=== PATIENT | male | born 1970 | race American Indian/Alaskan Native ===

== ENCOUNTER 2016-06-22 09:19 | Emergency (ER) | payer SELFPAY ==
[2016-06-22 09:45] VITALS: BP 123/96
--- NOTE | 2016-06-22 10:29 | Emergency Department Report ---
ED ENT HPI - General Chief complaint: Sore Throat Stated complaint: SEVERE THROAT /EAR PAIN Time Seen by Provider: 06/22/16 10:26 Source: patient Mode of arrival: Ambulatory Limitations: No Limitations - History of Present Illness Initial comments: Patient complaining of severe sore throat for the past 2 weeks. Patient denies shortness of breath, nausea vomiting, inability to eat or swallow. He should also denies neck pain. MD complaint: sore throat -: Gradual Location: throat Severity: mild Quality: burning - Related Data Previous Rx's Medication Instructions Recorded Last Taken Type Amoxicillin/K Clav Tab [Augmentin 1 tab PO Q12HR #20 tab 06/22/16 Unknown Rx 875 mg] predniSONE [Deltasone] 50 mg PO QDAY #5 tab 06/22/16 Unknown Rx Allergies Allergy/AdvReac Type Severity Reaction Status Date / Time No Known Allergies Allergy Unverified 06/22/16 09:41 ED Dental HPI - General Chief complaint: Sore Throat Stated complaint: SEVERE THROAT /EAR PAIN Time Seen by Provider: 06/22/16 10:26 Source: patient Mode of arrival: Ambulatory Limitations: No Limitations - History of Present Illness MD complaint: sore throat -: Gradual Severity: mild Quality: burning Worsens with: swallowing - Related Data Previous Rx's Medication Instructions Recorded Last Taken Type Amoxicillin/K Clav Tab [Augmentin 1 tab PO Q12HR #20 tab 06/22/16 Unknown Rx 875 mg] predniSONE [Deltasone] 50 mg PO QDAY #5 tab 06/22/16 Unknown Rx Allergies Allergy/AdvReac Type Severity Reaction Status Date / Time No Known Allergies Allergy Unverified 06/22/16 09:41 ED Review of Systems ROS: Stated complaint: SEVERE THROAT /EAR PAIN Other details as noted in HPI Constitutional: denies: chills, fever Eyes: denies: eye pain, eye discharge, vision change ENT: throat pain. denies: ear pain Respiratory: denies: cough, shortness of breath, wheezing Cardiovascular: denies: chest pain, palpitations Endocrine: no symptoms reported Gastrointestinal: denies: abdominal pain, nausea, diarrhea Genitourinary: denies: urgency, dysuria Musculoskeletal: denies: back pain, joint swelling, arthralgia Skin: denies: rash, lesions Neurological: denies: headache, weakness, paresthesias Psychiatric: denies: anxiety, depression Hematological/Lymphatic: denies: easy bleeding, easy bruising ED Past Medical Hx - Past Medical History Previous Medical History?: No - Surgical History Past Surgical History?: No - Social History Smoking Status: Never Smoker Substance Use Type: Alcohol, Non Opiate Pain - Medications Home Medications: Home Medications Medication Instructions Recorded Confirmed Last Taken Type Amoxicillin/K Clav Tab [Augmentin 1 tab PO Q12HR #20 tab 06/22/16 Unknown Rx 875 mg] predniSONE [Deltasone] 50 mg PO QDAY #5 tab 06/22/16 Unknown Rx ED Physical Exam - General Limitations: No Limitations General appearance: alert, in no apparent distress - Head Head exam: Present: atraumatic, normocephalic - Eye Eye exam: Present: normal appearance - ENT ENT exam: Present: mucous membranes dry, mucous membranes moist - Expanded ENT Exam Expanded Mouth exam: Absent: trismus, tongue elevation Throat exam: Positive: tonsillar erythema, other (no uvular deviation. Extremely swollen bilateral tonsils are almost touching.). Negative: tonsillar exudate, R peritonsillar mass, L peritonsillar mass - Neck Neck exam: Present: normal inspection, lymphadenopathy (mild anterior tender cervical adenopathy). Absent: tenderness, meningismus - Respiratory Respiratory exam: Present: normal lung sounds bilaterally. Absent: respiratory distress - Cardiovascular Cardiovascular Exam: Present: regular rate, normal rhythm. Absent: systolic murmur, diastolic murmur, rubs, gallop - GI/Abdominal GI/Abdominal exam: Present: soft, normal bowel sounds - Rectal Rectal exam: Present: deferred - Extremities Exam Extremities exam: Present: normal inspection - Back Exam Back exam: Present: normal inspection - Neurological Exam Neurological exam: Present: alert, oriented X3 - Psychiatric Psychiatric exam: Present: normal affect, normal mood - Skin Skin exam: Present: warm, dry, intact, normal color. Absent: rash ED Course Vital Signs 06/22/16 09:41 Temperature 98.4 F Pulse Rate 67 Respiratory 18 Rate Blood Pressure 123/96 O2 Sat by Pulse 99 Oximetry Critical care attestation.: If time is entered above; I have spent that time in minutes in the direct care of this critically ill patient, excluding procedure time. ED Disposition Clinical Impression: Tonsillitis Disposition: DISCHARGED TO HOME OR SELFCARE Is pt being admited?: No Does the pt Need Aspirin: No Condition: Good Instructions: Tonsillitis (ED) Additional Instructions: Patient advised to return to ER for inability to swallow fluids, shortness of breath, or neck pain. He should also advised to return in 48 hours so I could recheck his throat explaining the concern for developing possible peritonsillar abscess. Prescriptions: Amoxicillin/K Clav Tab [Augmentin 875 mg] 1 tab PO Q12HR #20 tab predniSONE [Deltasone] 50 mg PO QDAY #5 tab Forms: Work/School Release Form(ED)
[2016-06-22] MEDS ORDERED: XYLOCAINE 1% MPF 5 mL INFILTRATI ONE (10:32)
[2016-06-22] MEDS ORDERED: ROCEPHIN IM ONE (10:32)
[2016-06-22] MEDS ORDERED: DECADRON IM ONE (10:32)
== END 2016-06-22 11:22 | disposition home or self-care (01) ==
LOC: ED 09:19
DX: J03.90 Acute tonsillitis, unspecified (principal)
CPT/HCPCS: 96372; 99282; J0696; J1100